=== PATIENT | male | born 2000 | race Caucasian/White ===

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

== ENCOUNTER 2022-01-22 06:13 | Emergency (ER) | payer BC ==
[2022-01-22] MEDS ORDERED: Sulfamethoxazole/Trimethoprim 800-160 MG Tab PO ONE (06:36)
[2022-01-22 07:13] VITALS: BP 130/72; PULSE 71
== END 2022-01-22 07:13 | disposition home or self-care (01) ==
LOC: MW.ED 06:13
DX: L73.9 Follicular disorder, unspecified (principal); Z91.018 Allergy to other foods
CPT/HCPCS: 99282; A9270; 99283